=== PATIENT | male | born 1965 | race Caucasian/White ===

== ENCOUNTER 2019-09-16 15:35 | Emergency (ER) | payer OTHER ==
[~2019-09-16] VITALS: Ht 175.3 cm; Wt 136.1 kg
[2019-09-16] MEDS ORDERED: LIPITOR 10 MG10 M1 PO (15:47)
[2019-09-16] MEDS ORDERED: GLIPIZIDE 10 MG10 MG PO (15:47)
[2019-09-16] MEDS ORDERED: LISINOPRIL2.5 MG PO (15:47)
[2019-09-16] MEDS ORDERED: TRANSDERM-SCOP1 EACH TOP (16:19)
[2019-09-16 16:25] VITALS: BP 141/70
--- NOTE | 2019-09-17 10:31 | EKG ---
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
== END 2019-09-16 16:26 | disposition home or self-care (01) ==
LOC: M.ERS 15:35
DX: R42 Dizziness and giddiness (principal); E11.9 Type 2 diabetes mellitus without complications; I10 Essential (primary) hypertension; E78.5 Hyperlipidemia, unspecified; Z90.49 Acquired absence of other specified parts of digestive tract